=== PATIENT | female | born 1995 | race Caucasian/White ===

== ENCOUNTER → 2021-11-04 | Outpatient (CLI) | payer OTHER, SELFPAY ==
[2021-11-04 19:12] LABS: Progesterone Level 1.18 ng/mL (See Comment); Vitamin B12 461 pg/mL (211-911); Vitamin D,25 Hydroxy 37.1 ng/mL
[2021-11-04 19:16] LABS: Estradiol 78.1 pg/mL; T4 Free Direct 0.82 ng/dL (0.76-1.46); Thyroid Stim Hormone (TSH) 1.04 uIU/mL (0.358-3.74)
== END | disposition home or self-care (01) ==
PROVIDERS: PCP Internal Medicine; Visit Provider Nurse Practitioner Family
DX: R53.83 Other fatigue (principal); F32.A Depression, unspecified; N92.6 Irregular menstruation, unspecified
CPT/HCPCS: 82306; 82607; 82627; 82670; 84144; 84403; 84439; 84443; 82626